=== PATIENT | male | born 1950 | race Caucasian/White ===

== ENCOUNTER 2022-06-12 15:49 | Outpatient (CLI) | payer MEDICARE, OTHER, SELFPAY ==
--- NOTE | ~2022-06-12 | XR_ITS ---
EXAMINATION: XR_CERV2-3V_CR DATE: 06/12/2022 16:36 INDICATION: Neck pain. TECHNIQUE: 3 views of cervical spine were obtained. COMPARISON: None. FINDINGS: There is 2 mm retrolisthesis of C3 on C4 and C4 on C5. There is 9 degrees levocurvature of cervicothoracic spine. Vertebral body heights are normal. There is moderately decreased disc height a t C3-C4 and C4-C5 and severely decreased disc height from C5-C6 through C7-T1. There is multilevel un covertebral joint osteoarthritis, severe on the right at C4-C5 and bilaterally at C5-C6 and C6-C7. Th ere is multilevel mild facet joint osteoarthritis. There is mild central canal stenosis at C3-C4, C4- C5, C5-C6, and C6-C7. No prevertebral soft tissue swelling. IMPRESSION: 1. Severe cervical spondylosis. Reviewed, dictated and finalized at location A.
--- NOTE | ~2022-06-12 | XR_ITS ---
EXAMINATION: XR shoulder RT min 2V DATE: 06/12/2022 16:35 INDICATION: Right shoulder pain. TECHNIQUE: 4 views of right shoulder were obtained. COMPARISON: None. FINDINGS: Bone alignment is normal. No fracture. There is mild osteoarthritis of glenohumeral joint a nd acromioclavicular joint. IMPRESSION: 1. Mild polyarticular osteoarthritis. Reviewed, dictated and finalized at location A.
== END 2022-06-12 15:50 | disposition home or self-care (01) ==
LOC: CHSIMG 15:55
PROVIDERS: PCP Internal Medicine; Visit Provider Nurse Practitioner Family
DX: M25.511 Pain in right shoulder (principal); M54.2 Cervicalgia; M47.812 Spondylosis without myelopathy or radiculopathy, cervical region
CPT/HCPCS: 72040; 73030

== ENCOUNTER 2022-06-20 09:41 | Outpatient (CLI) | payer MEDICARE, OTHER, SELFPAY ==
--- NOTE | ~2022-06-20 | MR_ITS ---
EXAMINATION: MR shoulder RT wo con DATE: 06/20/2022 11:08 INDICATION: Right shoulder pain TECHNIQUE: Magnetic resonance imaging (MRI) of the right shoulder was performed without intravenous c ontrast. Sequences included axial PD-weighted FS FSE, coronal oblique PD-weighted FS FSE, coronal obl ique T2-weighted FS FSE, sagittal PD-weighted FS FSE, and sagittal T1-weighted SE. COMPARISON: Right shoulder radiographs dated 06/12/22 FINDINGS: Coracoacromial arch: The acromion undersurface is curved in morphology (type II). Small anterior subacromial spur at the acromial insertion of the normal coracoacromial ligament. Mode rate acromioclavicular osteoarthritis with mild synovitis. Rotator cuff: Mild supraspinatus tendinopathy without tear. Minimal cystic change along the articular side of the m iddle facet footplate of the otherwise normal infraspinatus tendon. The teres minor tendon is normal. Mild subscapularis tendinopathy without discrete tear. Normal rotator cuff muscle bulk and signal. Biceps tendon, glenoid labrum and glenohumeral cartilage: Mild tendinopathy without discrete tear of the intra-articular portion of the long head biceps tendon . Glenoid labrum is normal. Glenohumeral cartilage is normal. Fluid: Physiologic amount of fluid in the glenohumeral joint and biceps tendon sheath. No loose osteochondr al bodies. Small amount of fluid scattered synovitis in the subacromial/subdeltoid bursa consistent w ith mild to moderate bursitis. Bones/other: Normal marrow signal with no edema, fracture or pathologic marrow replacing process. Thickened soft t issue replacing the normal T1 hyperintense fat signal at the rotator cuff interval which can be seen with adhesive capsulitis which is a clinical diagnosis. IMPRESSION: 1. Mild supraspinatus and subscapularis tendinopathy without tear. 2. Mild to moderate subacromial/subdeltoid bursitis. 3. Increased soft tissue replacing the normal fat signal at the rotator cuff interval which can be se en in the setting of adhesive capsulitis which is a clinical diagnosis. 4. Moderate acromioclavicular osteoarthritis. Reviewed, dictated and finalized at location A. IMPRESSION: 1. Mild supraspinatus and subscapularis tendinopathy without tear. 2. Mild to moderate subacromial/subdeltoid bursitis. 3. Increased soft tissue replacing the normal fat signal at the rotator cuff in terval which can be seen in the setting of adhesive capsulitis which is a clini vic diagnosis. 4. Moderate acromioclavicular osteoarthritis.
--- NOTE | ~2022-06-20 | MR_ITS ---
EXAMINATION: MR cervical spine wo con DATE: 06/20/2022 11:08 INDICATION: Neck pain. TECHNIQUE: Magnetic resonance imaging (MRI) of the cervical spine was performed without intravenous c ontrast. Sequences included sagittal T2-weighted FSE, sagittal T2-weighted FS FSE, sagittal T1-weight ed FSE, axial MERGE, and axial T2-weighted FSE. COMPARISON: Cervical spine radiographs 06/12/2022 FINDINGS: There is 3 degrees dextrocurvature of cervical spine. There is 2 mm retrolisthesis of C3 on C4. There is mild chronic anterior wedging of T1 vertebral body. There is moderately decreased disc height at C3-C4 and C4-C5 and severely decreased disc height from C5-C6 through T1-T2 with endplate r emodeling. The spinal cord signal intensity is normal.. The following disc levels are specifically di scussed: C2-C3: The disc does not extend beyond the endplate margin. There is mild bilateral uncovertebral mary nt osteoarthritis. There is mild bilateral facet joint osteoarthritis. There is mild left neural fora stephanie stenosis. There is no central canal stenosis. C3-C4: The disc is bulging. There is moderate right and severe left uncovertebral joint osteoarthriti s. There is mild right and severe left facet joint osteoarthritis. There is moderate left neural fora stephanie stenosis. There is mild central canal stenosis. C4-C5: The disc is bulging. There is severe bilateral uncovertebral joint osteoarthritis. There is mi ld right and moderate left facet joint osteoarthritis. There is mild bilateral neural foraminal steno sis. There is mild central canal stenosis. C5-C6: The disc is bulging. There is severe bilateral uncovertebral joint osteoarthritis. There is mo derate right and severe left facet joint osteoarthritis. There is mild right and moderate left neural foraminal stenosis. There is mild central canal stenosis. C6-C7: The disc is bulging. There is severe bilateral uncovertebral joint osteoarthritis. There is mi ld bilateral facet joint osteoarthritis. There is mild bilateral neural foraminal stenosis. There is mild central canal stenosis. C7-T1: The disc is bulging. There is mild bilateral uncovertebral joint osteoarthritis. There is mode rate bilateral facet joint osteoarthritis. There is mild bilateral neural foraminal stenosis. There i s mild central canal stenosis. IMPRESSION: 1. Severe cervical spondylosis. Reviewed, dictated and finalized at location A.
== END 2022-06-20 09:42 | disposition home or self-care (01) ==
LOC: CHSIMG 09:42
PROVIDERS: PCP Internal Medicine; Visit Provider Nurse Practitioner Family
DX: M54.2 Cervicalgia (principal); M25.511 Pain in right shoulder
CPT/HCPCS: 72141; 73221

== ENCOUNTER 2022-07-06 16:26 | Outpatient (RCR) | payer MEDICARE, OTHER, SELFPAY ==
--- NOTE | 2022-07-06 17:48 | PTOPEVAL1 ---
Evaluation Information Assessment Status Evaluation Diagnosis R frozen shoulder/neck pain Onset 05/25/2022 Subjective Information Pt noticed that pain started after helping with his 's recent back surgery. His pain is located in his neck and R shoulder has been getting slightly worse over time. He reports that he sometimes gets pain down into both arms. Pain constantly changes especially with time of day, as night time is the worse. Pain in neck is centralized, and pain in R shoulder is in the front. He reports most difficulty when reaching behind his back. Notes that he feels he has lost a lot of strength, but notices this more in the R side. He loves to split wood and ride his motorcycle and hasn't been able to, but also reports he has been slower with home chores. Reported Pain Level Pain Score 0: Self Report Assessment PT Clinical Summary Pt presents to physical therapy with neck and R shoulder pain, decreased strength, and decreased ROM. 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 Objective testing demonstrates that adhesive capsulitis might not be developing yet due to lack of restrictions in a capsular pattern with both passive and active ROM. He was provided with an HEP focused on improving mobility within his tolerance. He will benefit from skilled PT to facilitate symptom relief, improve the aforementioned impairments, and return to functional and recreational activities. Plan of Care Interventions Electrical Stimulation,Hot Pack/Cold Pack,Manual Therapy,Patient/Caregiver Educati,Therapeutic Activities,Therapeutic Exercise PT Services Indicated Yes Treatment Frequency and 2x week for 8 visits Duration These treatments will address the objective and functional deficits as defined above. The patient will be advanced safely and appropriately in order for the patient to progress towards his/her prior level of function. Additional exercises will be introduced and as well as a comprehensive home exercise program upon discharge, if needed, ?to ensure carryover of functional gains achieved in the clinic. This treatment plan has been reviewed and agreement upon by the patient.
--- NOTE | 2022-07-31 18:07 | PTOPPROG ---
Assessment and note entered by Tami Valencia DPT Evaluation Information Assessment Status Progress Diagnosis R frozen shoulder/neck pain Onset 05/25/2022 Subjective Information Pt reports that his neck and shoulder have been doing a lot better but he is still getting symptoms into his bilateral hands. He notes most of his symptoms in the palm of his hands and fingers. He reports he had an injection that greatly helped this pain recently. He has a nerve conduction test at the end of July and doesn't see his neurosurgeon until September. Assessment PT Clinical Summary Pt presents to physical therapy with significant improvements in R shoulder and neck pain since his initial evaluation, however, he still has bilateral symptoms in his hands in a median nerve distribution. He demonstrates improvements with shoulder and cervical ROM but remains limited in neck muscular mobility. Pt was provided with some interventions to try with a focus on wrist/forearm mobility and median nerve gliding to aid symptoms . He is to try these interventions and PT will follow-up with pt regarding POC going forward, i.e . if pt would benefit from transition to OT. Plan of Care Treatment Frequency and 1x week for 2 visits Duration These treatments will address the objective and functional deficits as defined above. The patient will be advanced safely and appropriately in order for the patient to progress towards his/her prior level of function. Additional exercises will be introduced and as well as a comprehensive home exercise program upon discharge, if needed, ?to ensure carryover of functional gains achieved in the clinic. This treatment plan has been reviewed and agreement upon by the patient.
== END 2022-07-31 23:59 | disposition home or self-care (01) ==
LOC: CHSPT 16:26
PROVIDERS: PCP Internal Medicine; Visit Provider Internal Medicine
DX: M75.01 Adhesive capsulitis of right shoulder (principal); M54.2 Cervicalgia; M47.812 Spondylosis without myelopathy or radiculopathy, cervical region
CPT/HCPCS: 97012; 97110; 97161

== ENCOUNTER 2022-08-24 09:58 | Outpatient (CLI) | payer MEDICARE, OTHER, SELFPAY ==
--- NOTE | 2022-08-24 11:15 | NEURO_ITS ---
Impression: # Complains of numbness of hands. # Bilateral Carpal Tunnel Syndrome, right more than left. 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 # Needle/EMG exam not requested. Motor Nerve Conduction Upper Extremities Median Nerve Conduction Velocity (m/sec) Terminal Latency (msec) Response Voltage(mV) Elbow-Wrist Wrist Elbow Wrist Right 52 4.4 3 4 Left 58 3.8 2 2 Ulnar Nerve Conduction Velocity (m/sec) Terminal Latency (msec) Response Voltage(mV) Above Elbow Below Elbow Wrist Above Elbow Below Elbow Wrist Right 48 51 2.6 3 4 4 Left 53 53 2.3 4 3 5 F-Wave Latency Median (ms) Ulnar (ms) Right 30.8 31.1 Left 30.7 29.6 Sensory Nerve Conduction Upper Extremities Median Nerve Stimulation Terminal Latency (msec) Wrist/Digit Response Voltage (uV) Wrist Right 4.7/4.7 9/12 Left 3.8/4.2 19/18 Ulnar Nerve Stimulation Terminal Latency (msec) Wrist/Digit Response Voltage (uV) Wrist Right 2.9 21 Left 2.6 28 Radial Nerve Terminal Latency (msec) Response Voltage(mV) Right 2.7 11 Left 2.3 22 MTDD
== END 2022-08-24 09:59 | disposition home or self-care (01) ==
LOC: ANHNEURO 10:00
PROVIDERS: PCP Internal Medicine; Visit Provider Internal Medicine
DX: R20.0 Anesthesia of skin (principal); G56.03 Carpal tunnel syndrome, bilateral upper limbs; G56.23 Lesion of ulnar nerve, bilateral upper limbs
CPT/HCPCS: 95911

== ENCOUNTER 2023-07-12 14:56 | Outpatient (CLI) | payer MEDICARE, OTHER, SELFPAY ==
[2023-07-12 15:13] LABS: Basophils Absolute Auto 0.03 K/mm3 (0.00-0.10); Basophils Percent Auto 0.5 % (0.0-1.0); Eosinophils Absolute Auto 0.21 K/mm3 (0.02-0.50); Eosinophils Percent Auto 3.5 % (1.0-6.0); Hematocrit 42.3 % (37.0-46.0); Hemoglobin 13.5 g/dL (12.4-15.3); Immature Granulocyte Absolute 0.02 K/mm3 (0.00-0.00); Immature Granulocyte Percent A 0.3 % (0.0-0.0); Lymphocytes Absolute Auto 1.27 K/mm3 (1.10-4.50); Lymphocytes Percent Auto 21.2 % (18.0-42.0); Mean Corpuscular HGB Conc 31.9 g/dL (32.0-36.0); Mean Corpuscular Hemoglobin 29.2 pg (27.0-31.0); Mean Corpuscular Volume 91.4 fL (78.0-102.0); Mean Platelet Volume 10.5 fl (8.7-11.0); Monocytes Absolute Auto 0.58 K/mm3 (0.10-0.90); Monocytes Percent Auto 9.7 % (2.0-11.0); Neutrophils Absolute Auto 3.9 K/mm3 (1.7-7.2); Neutrophils Percent Auto 64.8 % (50.0-70.0); Platelet Count Result 246 K/mm3 (150-420); Red Blood Count 4.63 M/mm3 (4.70-6.10); Red Cell Distribution Width 12.5 % (11.6-14.4)
[2023-07-12 17:08] LABS: Appearance Urine Clear (Clear); Bilirubin Urine Negative (Negative); Blood Urine Negative (Negative); Color Urine Yellow (Yellow); Glucose Urine UA Negative (Negative); Ketones Urine Negative (Negative); Leukocyte Esterase Ur Negative (Negative); Nitrate Urine Negative (Negative); Protein Urine Negative (Negative); Specific Grav Ur 1.025 (1.010-1.020); Urobilinogen Urine 0.2 mg/dL (0.2-1.0)
[2023-07-12 17:21] LABS: Alanine Aminotransferase 15 U/L (16-63); Alkaline Phosphatase 63 U/L (46-116); Amylase 72 U/L (25-115); Anion Gap 8 mmol/L (8-16); Aspartate Amino Transferase 13 U/L (15-37); Bilirubin,Total 0.5 mg/dL (0.00-1.00); Blood Urea Nitrogen 13 mg/dL (7-18); Calcium 9.3 mg/dL (8.5-10.1); Carbon Dioxide 30 mmol/L (21-32); Chloride 103 mmol/L (98-108); Estimated Glomerular Filt Rate > 60; Glucose 103 mg/dL (70-99); Lipase 48 U/L (16-77); Osmolality Calculated 292 mOsm/kg (285-295); Potassium 4.3 mmol/L (3.5-5.1); Prostate Specific Antigen 4.4 ng/mL (< OR = 4.0); Sodium 141 mmol/L (136-145); Total Protein 7.5 g/dL (6.4-8.2)
[2023-07-12 17:36] LABS: Add Urine Microscopic? NO
== END 2023-07-12 14:57 | disposition home or self-care (01) ==
LOC: CHSLAB 14:59
PROVIDERS: PCP Internal Medicine; Visit Provider Internal Medicine
DX: R10.9 Unspecified abdominal pain (principal); R35.1 Nocturia; R30.0 Dysuria
CPT/HCPCS: 36415; 80053; 81003; 82150; 83690; 84153; 85025

== ENCOUNTER 2023-07-13 09:06 | Outpatient (CLI) | payer MEDICARE, OTHER, SELFPAY ==
--- NOTE | ~2023-07-13 | CT_ITS ---
CT of the Abdomen and Pelvis: Indication: Abdominal pain Technique: 2.5 mm axial scans were obtained through the abdomen and pelvis following intravenous adm inistration of 100 cc of Omnipaque 350. Dose reduction technique was used on this scan by utilizing a utomated exposure control and iterative reconstruction technique. The dose-length product (DLP) was 5 62.20 mGy-cm. COMPARISON: 07/06/2018 Findings: Scans through the lung bases are unremarkable. The liver, spleen, pancreas, adrenals and kidneys are within normal limits. Cholecystectomy clips are present. There are atherosclerotic calcifications of the aorta. No lymphadenopathy.. There is an ar ea of apparent fat necrosis/omental infarct along the anterior margin of the inferior right hepatic l obe (coronal image 18 for example). No bowel obstruction or bowel wall thickening. Sigmoid diverticulosis noted. Images through the pelvis were performed. Bladder unremarkable. Prostate gland is markedly enlarged, and indents through the bladder base. No ascites. 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 Markedly enlarged prostate gland. Reviewed, dictated and finalized at location M. Impression: Area of probable fat necrosis/mental infarct along the anterior margin of the i nferior right hepatic lobe, as detailed above. Markedly enlarged prostate gland.
== END 2023-07-13 09:07 | disposition home or self-care (01) ==
LOC: CHSIMG 09:07
PROVIDERS: PCP Internal Medicine; Visit Provider Internal Medicine
DX: R10.31 Right lower quadrant pain (principal); N40.0 Benign prostatic hyperplasia without lower urinary tract symptoms; K59.00 Constipation, unspecified
CPT/HCPCS: 74177; Q9967